=== PATIENT | female | born 1960 | race Caucasian/White ===

== ENCOUNTER 2024-08-04 10:37 | Observation (INO) ==
--- NOTE | 2024-06-08 14:21 | PAT Medication Instructions ---
Medication Instructions Date of Service June 08, 2024 Home Medications albuterol sulfate 90 mcg/actuation aerosol inhaler 2 puff inhalation Q6H PRN prn amlodipine 10 mg tablet 10 mg PO HS atenolol 25 mg tablet 25 mg PO QAM biotin 10,000 mcg capsule 10,000 mcg PO QPM budesonide-formoterol HFA 160 mcg-4.5 mcg/actuation aerosol inhaler (Symbicort) 2 puff inhalation Q12H bupropion HCl 200 mg tablet,12 hr sustained-release 200 mg PO BID collagen,hydrolysate 500 mg-biotin 800 mcg-ascorbic acid 50 mg capsule (Collagen 1500 Plus C) 1 cap PO QAM escitalopram oxalate 10 mg tablet 10 mg PO QAM hydrochlorothiazide 25 mg tablet 25 mg PO QAM levothyroxine 50 mcg tablet 50 mcg PO QAM magnesium 250 mg tablet 250 mg PO QAM montelukast 10 mg tablet 10 mg PO HS phentermine 37.5 mg tablet 37.5 mg PO QAM pregabalin 50 mg capsule 50 mg PO TID rosuvastatin 5 mg tablet 5 mg PO HS vit C-vit R-ewnvub-uazbpnwh-omega 3 100 mg-15 unit-2 mg-100 mg capsule 1 cap PO QAM vitamin B complex 1 cap PO QAM vitamin E 400 unit tablet 180 mg PO QAM MEDICATION INSTRUCTIONS: Continue as directed albuterol sulfate 90 mcg/actuation aerosol inhaler 2 puff inhalation Q6H PRN prn (use if needed; BRING TO HOSPITAL) budesonide-formoterol HFA 160 mcg-4.5 mcg/actuation aerosol inhaler (Symbicort) 2 puff inhalation Q12H STOP taking 2 weeks before surgery collagen,hydrolysate 500 mg-biotin 800 mcg-ascorbic acid 50 mg capsule (Collagen 1500 Plus C) 1 cap PO QAM vit C-vit F-ohvlwm-cqunrafe-omega 3 100 mg-15 unit-2 mg-100 mg capsule 1 cap PO QAM vitamin E 400 unit tablet 180 mg PO QAM biotin 10,000 mcg capsule 10,000 mcg PO QPM DO NOT take the morning of surgery hydrochlorothiazide 25 mg tablet 25 mg PO QAM vitamin B complex 1 cap PO QAM magnesium 250 mg tablet 250 mg PO QAM Take morning of surgery With a small sip of water, OTHERWISE NOTHING TO EAT OR DRINK AFTER MIDNIGHT: levothyroxine 50 mcg tablet 50 mcg PO QAM atenolol 25 mg tablet 25 mg PO QAM escitalopram oxalate 10 mg tablet 10 mg PO QAM pregabalin 50 mg capsule 50 mg PO TID bupropion HCl 200 mg tablet,12 hr sustained-release 200 mg PO BID Take evening before surgery rosuvastatin 5 mg tablet 5 mg PO HS amlodipine 10 mg tablet 10 mg PO HS montelukast 10 mg tablet 10 mg PO HS pregabalin 50 mg capsule 50 mg PO TID bupropion HCl 200 mg tablet,12 hr sustained-release 200 mg PO BID Other Notes STOP taking 5 days prior to surgery: phentermine 37.5 mg tablet 37.5 mg PO QAM If you have any questions please call us at [phone] or [phone] or [phone] or [phone]
--- NOTE | 2024-06-15 14:34 | Anesthesiology Consultation ---
Date of Service June 15, 2024 Assessment & Plan (1) Encounter for pre-operative examination: Plan - patient reports routine office visit with [facility] pulmonology 07/12/24, will obtain office note if completed prior to surgery. Dr. Ochoa advised pulmonology clearance is not needed and surgery can proceed if office note is not available before surgery. - OR notified pseudocholinesterase deficiency precautions will be needed. - Medtronic neurostimulator device: patient reports increased back pain which she attributes to device. Patient aware to bring remote to hospital DOS. This was discussed with Dr. Ochoa who advised sending a continuity of care document to PCP, Dr. Ron Wilson in [facility]. Chart Review Chart Review: Pending: Refer to Additional Notes / Consult section and Patient seen in Pre Admission Testing Teaching & Discussion Pre-Anesthesia Teaching/Discussion Notes: Instructed NPO after midnight before surgery, except medications with 15 cc of water. Medication instructions provided according to the PAT guidelines. History Surgery Operation Date: 07/13/24 10:20 Proposed Procedures p Right Shoulder Revision of Total Shoulder Arthroplasty, Versus Reverse Total Shoulder Arthroplasty, Versus - Ermias Sanchez MD s Hemiarthroplasty with Bone Grafting - Ermias Sanchez MD Height/Weight Height: 5 ft 4 in Weight: 87 kg Allergies Allergy/AdvReac Type Severity Reaction Status Date / Time ciprofloxacin [From Cipro] Allergy Severe Confusion Verified 06/03/24 13:09 succinylcholine Allergy Severe Verified 06/15/24 14:58 NSAIDS (Non-Steroidal AdvReac Unknown Nausea Verified 06/03/24 13:09 Anti-Inflamma sumatriptan AdvReac Unknown "TRIPTANS" Verified 10/26/09 04:14 CAUSE ELEVATED BP AND HEART RATE Medications Home Medications Medication Instructions Recorded Confirmed Last Taken albuterol sulfate 90 mcg/actuation 2 puff inhalation Q6H PRN prn 06/03/24 06/03/24 Unknown aerosol inhaler amlodipine 10 mg tablet 10 mg PO HS 06/03/24 06/03/24 Unknown atenolol 25 mg tablet 25 mg PO QAM 06/03/24 06/03/24 Unknown biotin 10,000 mcg capsule 10,000 mcg PO QPM 06/03/24 06/03/24 Unknown budesonide-formoterol HFA 160 2 puff inhalation Q12H 06/03/24 06/03/24 Unknown mcg-4.5 mcg/actuation aerosol inhaler (Symbicort) bupropion HCl 200 mg tablet,12 hr 200 mg PO BID 06/03/24 06/03/24 Unknown sustained-release collagen,hydrolysate 500 mg-biotin 1 cap PO QAM 06/03/24 06/03/24 Unknown 800 mcg-ascorbic acid 50 mg capsule (Collagen 1500 Plus C) escitalopram oxalate 10 mg tablet 10 mg PO QAM 06/03/24 06/03/24 Unknown hydrochlorothiazide 25 mg tablet 25 mg PO QAM 06/03/24 06/03/24 Unknown levothyroxine 50 mcg tablet 50 mcg PO QAM 06/03/24 06/03/24 Unknown magnesium 250 mg tablet 250 mg PO QAM 06/03/24 06/03/24 Unknown montelukast 10 mg tablet 10 mg PO HS 06/03/24 06/03/24 Unknown phentermine 37.5 mg tablet 37.5 mg PO QAM 06/03/24 06/03/24 Unknown pregabalin 50 mg capsule 50 mg PO TID 06/03/24 06/03/24 Unknown rosuvastatin 5 mg tablet 5 mg PO HS 06/03/24 06/03/24 Unknown vit C-vit E-knyvwm-apdirukb-omega 1 cap PO QAM 06/03/24 06/03/24 Unknown 3 100 mg-15 unit-2 mg-100 mg capsule vitamin B complex 1 cap PO QAM 06/03/24 06/03/24 Unknown vitamin E 400 unit tablet 180 mg PO QAM 06/03/24 06/03/24 Unknown Past Medical History Medical History (Updated 06/15/24 @ 14:59 by Sho Paul PA-C) Bxdkv-0-[id number] deficiency Anxiety Asthma uses inhalers prn Cervical disc herniation Depression Shelly's disease History of skull fracture (2021) [facility] Hyperlipidemia Hypertension controlled, stable per pt Hypothyroidism Osteoarthritis Pseudocholinesterase deficiency mother with pseudocholinesterase deficiency; per patient mother "can't have succinylcholine" Sacral neurostimulator in situ medtronic, patient was advised to bring visual basic programmer to PAT appointment and DOS Sleep apnea CPAP-compliant Patient denies h/o stroke, seizures, heart attack, heart failure, DM, blood clots/DVTs or blood transfusions. Exercise / Class Metabolic Activity II 4-5 Yardwork/Stairs/Walk up hill (denies chest discomfort or shortness of breath with one flight of stairs) Past Surgical History Surgical History History of bunionectomy of left great toe History of cataract surgery bilateral History of facial surgery (2004) hardware placed right eye socket History of hemorrhoidectomy History of photorefractive keratectomy (PRK) History of right shoulder replacement History of shoulder surgery right "stabilization with pins" History of tonsillectomy Past Anesthesia History Pseudocholinesterase Deficiency History of PONV No Hx of PONV and No Hx of Motion Sickness Social History Smoking Status: Never smoker Do You Dip or Chew Tobacco: No Hx Alcohol Use: No Hx Substance Use: No substance use type: does not use Review of Systems Patient denies chest pain, shortness of breath, dyspnea on exertion, reflux, fever, chills, cough, wheezing, or palpitations. Physical Exam Vital Signs Vitals BP 109/71 P 60 TEMP 98.2 SP02 96% on RA RESP 18 Physical Patient resting comfortably in chair in no acute distress, alert and oriented, responding appropriately throughout visit Full cervical extension range of motion without pain TMD 3.5 finger breadths Mallampati Score 2 Dentition: intact, denies chipped or loose teeth, caps/crowns, implants or bridges Lungs: normal respiratory effort. Good air movement, clear throughout to auscultation, no adventitious breath sounds Cardiac: regular rate and rhythm, no murmurs noted Carotid arteries: negative bruit bilat Lab Results Anesthesia Preop Results Results Anesthesia Widget: WBC 5.48 K/ul (4.8-10.8) 06/15/24 Hgb 13.0 g/dl (12.0-16.0) 06/15/24 Hct 38.3 % (37.0-47.0) 06/15/24 Plt 288 K/uL (130-400) 06/15/24 Na 139 mmol/L (136-145) 06/15/24 K 3.7 mmol/L (3.5-5.1) 06/15/24 Cl 103 mmol/L (98-107) 06/15/24 CO2 30 mmol/L (21-32) 06/15/24 BUN 17 mg/dl (6-23) 06/15/24 Creat 0.77 mg/dl (0.6-1.2) 06/15/24 Glucose Level 104 mg/dl (70-99(Fasting)) H 06/15/24 PT 10.7 Seconds (9.0-12.0) 06/15/24 PTT 25 Seconds (21-31) 06/15/24 INR 1.0 (0.9-1.1) 06/15/24 Urine Color Yellow 06/15/24 Urine Appearance Clear (Clear) 06/15/24 Urine pH 7.0 (4.5-7.5) 06/15/24 Urine Specific [place] 1.015 (1.000-1.030) 06/15/24 Urine Protein Negative (Negative) 06/15/24 Urine Glucose (UA) Negative (Negative) 06/15/24 Urine Ketones Negative (Negative) 06/15/24 Urine Blood Negative (Negative) 06/15/24 Urine Nitrite Negative (Negative) 06/15/24 Urine Bilirubin Negative (Negative) 06/15/24 Urine Urobilinogen Negative (Negative) 06/15/24 Urine Leukocyte Esterase Trace (Negative) H 06/15/24 Urine WBC (Auto) 0-5 /hpf (0-5) 06/15/24 Urine RBC (Auto) 0-2 /hpf (0-2) 06/15/24 Urine Hyaline Casts (Auto) 0-2 /lpf (0-2) 06/15/24 Urine Epithelial Cells (Auto) 0-2 /hpf (0-2) 06/15/24 Urine Bacteria (Auto) None Seen (None Seen) 06/15/24 Blood Type AB Positive 06/15/24 Antibody Screen NEGATIVE 06/15/24 Testing Electrocardiogram Date: 06/15/24 Sinus bradycardia, rate 57 bpm Left axis deviation Cannot rule out anterior infarct, age undetermined No significant change vs 01/30/2009 EKG Chest X-Ray Date: 06/15/24 No active disease in the chest.
--- NOTE | 2024-07-11 17:44 | History & Physical Report ---
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 Plan is to proceed with revision of a right shoulder anatomic total shoulder replacement to a right shoulder reverse total shoulder replacement. Augmented glenoid component will be required due to bone loss. Possible bone grafting with or without Genex bone graft substitute may be required. Encounter type: initial encounter Qualified Code(s): T84.038A - Mechanical loosening of other internal prosthetic joint, initial encounter; Z96.619 - Presence of unspecified artificial shoulder joint History of Present Illness Chief Complaint: Right shoulder pain , right total shoulder replacement. Primary Care Provider: NO PCP 64-year-old female with right shoulder pain now diagnosed with osteolysis and aseptic glenoid loosening of a right anatomic shoulder replacement. Index procedure 02/14/2009 for advanced glenohumeral osteoarthritis with posterior subluxation with chondrolysis status post prior arthroscopic stabilization procedure. Patient also had a biceps tenodesis. Patient denies headaches, sweats, fevers, chills, double vision, blurred vision, cough, sore throat, dysphagia, chest pain, sob, wheezing, n/v/d/c, numbness, tingling, fatigue, urinary symptoms, mood disorders. ROS positive for anxiety depression, asthma, sleep apnea, shortness of breath walking up a hill or running short distance or climbing some stairs sometimes, hypothyroidism Shelly's osteoarthritis of the spine obesity takes diet medication. Allergies Allergy/AdvReac Type Severity Reaction Status Date / Time ciprofloxacin [From Cipro] Allergy Severe Confusion Verified 06/03/24 13:09 succinylcholine Allergy Severe Verified 06/15/24 14:58 NSAIDS (Non-Steroidal AdvReac Unknown Nausea Verified 06/03/24 13:09 Anti-Inflamma sumatriptan AdvReac Unknown "TRIPTANS" Verified 10/26/09 04:14 CAUSE ELEVATED BP AND HEART RATE Home Medications Medication Instructions Recorded Confirmed Type albuterol sulfate 90 mcg/actuation 2 puff inhalation Q6H PRN prn 06/03/24 06/03/24 History aerosol inhaler amlodipine 10 mg tablet 10 mg PO HS 06/03/24 06/03/24 History atenolol 25 mg tablet 25 mg PO QAM 06/03/24 06/03/24 History biotin 10,000 mcg capsule 10,000 mcg PO QPM 06/03/24 06/03/24 History budesonide-formoterol HFA 160 2 puff inhalation Q12H 06/03/24 06/03/24 History mcg-4.5 mcg/actuation aerosol inhaler (Symbicort) bupropion HCl 200 mg tablet,12 hr 200 mg PO BID 06/03/24 06/03/24 History sustained-release collagen,hydrolysate 500 mg-biotin 1 cap PO QAM 06/03/24 06/03/24 History 800 mcg-ascorbic acid 50 mg capsule (Collagen 1500 Plus C) escitalopram oxalate 10 mg tablet 10 mg PO QAM 06/03/24 06/03/24 History hydrochlorothiazide 25 mg tablet 25 mg PO QAM 06/03/24 06/03/24 History levothyroxine 50 mcg tablet 50 mcg PO QAM 06/03/24 06/03/24 History magnesium 250 mg tablet 250 mg PO QAM 06/03/24 06/03/24 History montelukast 10 mg tablet 10 mg PO HS 06/03/24 06/03/24 History phentermine 37.5 mg tablet 37.5 mg PO QAM 06/03/24 06/03/24 History pregabalin 50 mg capsule 50 mg PO TID 06/03/24 06/03/24 History rosuvastatin 5 mg tablet 5 mg PO HS 06/03/24 06/03/24 History vit C-vit D-kyucjj-gwvwttya-omega 1 cap PO QAM 06/03/24 06/03/24 History 3 100 mg-15 unit-2 mg-100 mg capsule vitamin B complex 1 cap PO QAM 06/03/24 06/03/24 History vitamin E 400 unit tablet 180 mg PO QAM 06/03/24 06/03/24 History Past Med/Surg History Problem List (Updated 07/11/24 @ 17:40 by Ermias Sanchez MD) Loosening of shoulder joint prosthesis Encounter for pre-operative examination Medical History Pseudocholinesterase deficiency mother with pseudocholinesterase deficiency; per patient mother "can't have succinylcholine" History of skull fracture (2021) [facility] Sacral neurostimulator in situ medtronic, patient was advised to bring applications programmer to PAT appointment and DOS Cervical disc herniation Osteoarthritis Shelly's disease Hypothyroidism Depression Anxiety Hyperlipidemia Hypertension controlled, stable per pt Fnpwb-3-[id number] deficiency Sleep apnea CPAP-compliant Asthma uses inhalers prn Surgical History History of facial surgery (2004) hardware placed right eye socket History of right shoulder replacement History of tonsillectomy History of shoulder surgery right "stabilization with pins" History of bunionectomy of left great toe History of hemorrhoidectomy History of photorefractive keratectomy (PRK) History of cataract surgery bilateral Social History Smoking Status: Never smoker Second Hand Exposure: No; Do You Dip or Chew Tobacco: No; Tobacco Cessation Education Requested by Patient: No Hx Alcohol Use: No Hx Substance Use: No Preferred Language: [employer] Required: No Beliefs That Will Affect Care: None Current Living Situation: Spouse Other Information That Helps Us Care for You: No Feels Safe at Home: Yes Safety Concerns: Feels Safe At This Time Assistive Devices: Denture - Lower Assistive Devices Comment: permanant partial on bottom Review of Systems All systems reviewed & are unremarkable except as noted in HPI & below Physical Exam Constitutional: WD/WN, vitals as above Respiratory: normal respiratory effort; no respiratory distress Cardiovascular: Rate/Rhythm: regular rate and regular rhythm Musculoskeletal: Right shoulder with benign old scars no crepitation a positive belly press test but good abduction and external rotation strength. Some weakness with bearhug test. 145 degrees forward flexion and 110 degrees active abduction with exte rnal rotation to 80 degrees and internal rotation to 90 degrees and mild pain with range of motion. Neurological exam intact. Skin: no rashes, warm and dry Neurologic: normal touch/pain/proprioception Psychiatric: A+Ox3, euthymic affect Results & Data Laboratory Results CBC ESR CRP all within normal limits Diagnostic Findings X-rays and CT scan demonstrate massive osteolysis around the glenoid with loosening of the glenoid component and no loosening of the humeral stem. CT scan verifies loosening of the glenoid component and on blueprint evaluation we were able to set an augmented glenoid component and achieve satisfactory potential screw length fixation of the implant on the computer program.
[~2024-08-04 10:37] MED LIST: BUPIVACAINE 0.5 % 5 MG/1 ML PF 10ML VIAL ONE
[2024-08-04] MEDS ORDERED: PROPOFOL IV EMULSION 10 MG/ML 20 ML VIAL IV ONE (11:30)
[2024-08-04] MEDS ORDERED: LIDOCAINE 2% 2 ML VIAL/AMP(20MG/ML) INFIL ONE (11:30)
[2024-08-04] MEDS ORDERED: LARYING-O-JET KIT (LTA) ONE (11:30)
[2024-08-04] MEDS ORDERED: MIDAZOLAM HCL 1 MG/ML 2ML VIAL ONE (11:30)
[2024-08-04] MEDS ORDERED: ONDANSETRON INJ 2 MG/ML 2 ML VIAL ONE ×2 (11:30→17:58)
[2024-08-04] MEDS ORDERED: DEXAMETHASONE SOD INJ 4 MG/ML VIAL ONE (11:30)
[2024-08-04] MEDS ORDERED: ROCURONIUM BROMIDE 10 MG/ML 5 ML VIAL IV ONE ×3 (11:30→16:12)
[2024-08-04] MEDS ORDERED: fentaNYL citrate PF 100 MCG/2 ML VIAL ONE ×2 (11:30→18:28)
[2024-08-04] MEDS ORDERED: SUGAMMADEX SODIUM 200 MG/2 ML VIAL IV ONE (11:30)
[2024-08-04] MEDS ORDERED: ONDANSETRON INJ 2 MG/ML 2 ML VIAL IV PRN ×2 (11:56→19:53)
[2024-08-04] MEDS ORDERED: HYDROmorphone INJ 1 MG/ML SYRINGE IV PRN (11:56)
[2024-08-04] MEDS ORDERED: ePHEDrine sulfate 50 MG/ML AMP IV PRN (11:56)
[2024-08-04] MEDS ORDERED: PROMETHAZINE HCL 6.25 MG in SODIUM CHLORIDE 0.9% 50 ML IV PRN (11:56)
[2024-08-04] MEDS ORDERED: ATROPINE SULFATE 0.1 MG/ML 10ML SYR IV PRN (11:56)
--- NOTE | 2024-08-04 12:03 | History & Physical Bridge Note ---
Date of Service August 04, 2024 History & Physical Bridge Note I have examined the patient, reviewed the History & Physical and in the interval since the performance of the History & Physical I have noted the following changes of clinical significance: no changes noted
[2024-08-04] MEDS: ACETAMINOPHEN 500 MG TAB PO SCH ×2 (12:10→22:28)
[2024-08-04] MEDS: GABAPENTIN 300 MG CAP PO SCH (12:10)
[2024-08-04] MEDS: LACTATED RINGER'S 1,000 ML IV SCH (12:10)
[2024-08-04] MEDS: CeleBREX 200 MG CAP PO SCH (12:10)
[2024-08-04] MEDS: FAMOTIDINE 20 MG TAB PO SCH (12:11)
[2024-08-04] MEDS: dexAMETHasone**PF** 10 MG/ML VIAL IV SCH (12:11)
[2024-08-04] MEDS: METOCLOPRAMIDE HCL 10 MG TABLET PO SCH (12:11)
[2024-08-04] MEDS: TRANEXAMIC ACID 1,000 MG **IV Pre-op IV SCH (13:33)
[2024-08-04] MEDS: ceFAZolin 2000MG 2,000 MG/15 ML SYR IV SCH (13:44)
[2024-08-04] MEDS ORDERED: PHENYLEPHRINE HCL 10 MG/ML VIAL ONE (15:20)
[2024-08-04] MEDS ORDERED: ePHEDrine sulfate 50 MG/5 ML SYR ONE ×2 (15:33→16:33)
[2024-08-04] MEDS: EpINEphrine HCL INJ 1 MG/ML 1ML SYRINGE IR ONE (16:19)
[2024-08-04] MEDS: ceFAZolin 2000MG 2,000 MG/15 ML SYR IV ONE (17:44)
[2024-08-04] MEDS: TRANEXAMIC ACID 1,000 MG **IV Intra-op IV SCH (18:00)
[2024-08-04] MEDS: fentaNYL citrate PF 100 MCG/2 ML VIAL IV PRN (18:39)
--- NOTE | 2024-08-04 18:48 | Operative Report ---
Post Operative Report Pre & Post Diagnosis Operation Date: 08/04/24 13:10 Pre-Op Diagnosis: Right Shoulder aseptic loosening anatomic total Shoulder Arthroplasty with osteolysis with loosening of glenoid component with bone loss and osteolysis proximal humerus without loosening of stem. Post-Op Diagnosis: Same I identified the patient and participated in the time-out.: Yes Procedure Operation Date: 08/04/24 13:10 Actual Procedures p Right Revision of anatomic total Shoulder Arthroplasty both glenoid and humeral components with Reverse Total Shoulder Arthroplasty including Genex bone substitute application. Debridement inflammatory scar tissue and synovium and old suture material.- Ermias Sanchez MD - Ermias Sanchez MD Surgeon Ermias Sanchez MD Scheduling Agent Leo LOZOYA Estimated Blood Loss 200 Findings Consistent with Post-Op Diagnosis Specimens Frozen section Drains 2 Hemovac Anesthesia Type General Regional Complications none Disposition Disposition: Recovery Room Indications 64-year-old female presenting with right shoulder pain with loosening of the glenoid. Patient had extensive workup with normal CBC sed rate CRP and x-rays and CT scan demonstrating massive osteolysis around the glenoid with glenoid loosening and displacement and osteolysis around the proximal humerus with no loosening of the stem. Description of Procedure Patient had regional block and general anesthetic placed in the 30 degree beachchair position with towel on medial to right scapula. She was translated right so the beds were shoulder be made plate off the bed. Her head was placed on a foam headrest and she had protective eyewear. All extremities were well- padded. SCDs were placed. Patient had Ancef preop antibiotics. Patient had TXA preop. Shoulder exam demonstrated 120 degrees forward flexion 70 to 80 degrees abduction and 45 degrees external rotation. There was no erythema no drainage benign old scar. Patient was sterilely prepped and draped in usual fashion. A longitudinal decision was made through her old scar. Subtendinous flaps were elevated. There was no cephalic vein. Small veins were cauterized. The interval between deltoid and pectoralis was developed down to the conjoined tendon which was identified. The biceps tendon was identified being tenodesed in the bicipital groove area. The upper centimeter of the pectoralis was released for inferior exposure. Subscapularis tendon was still intact but it was poor degenerative type tissue with multiple areas of inflammatory response with the scarred inflammatory tissue around each of the knots from the prior suturing. Had a bluish hue to it possibly due to the color of the suture. All of these old sutures were removed with a rongeur scalpel. Inflammatory tissue was removed. The rotator was then opened up and divided down to the glenoid. Normal clear fluid was evacuated from the joint. Incision was taken down through the bicipital groove down to the pectoralis release. Subperiosteal peel was then performed carefully peeling this off the neck of the humerus exposing the humeral implant. There was similar inflammatory scar tissue synovitis consistent with aseptic osteolysis around the neck of the prosthesis and around between the metal and the greater tuberosity and lesser tuberosity areas. More sutures that were placed transosseous for the repair were removed in these areas and this tissue was removed with a rongeur and curettes. Stem was well-fixed. A tamp was used to remove the humeral head. The implant was an aequalis type implant which had a large ring under the implant that did not allow a straight shot allowing the shaft because of the overhang of the ledge. There was a Jackson taper in the central region. This time we did have enough exposure to place retractors and inspect the glenoid and there was massive osteolysis there with inflammatory response in the glenoid was displaced anteriorly in the area of bone defect where it had stabilized in that area but was obviously loose. It was removed uneventfully. Appear to be some typical wear and some edge wear on the implant all pegs removed with some cement around the pegs. Implant was a pegged implant. This was taken back to the humerus. To extract the humerus I used a flexible osteotomes with a curved shape to work around the stem underlying underlying the ledge. There is also a thin on the back of the implant that had to be freed up from the surrounding bone when it was bone ingrowth of the thin I used a very small curette and a small rongeur to free that up. After I felt we had enough circumferential separation we used the Kybernesis extraction system and disimpacted the stem. There was some fragmentation of the greater tuberosity but of these fragments were enveloped by the intact posterior rotator cuff so there was no displacement of the fragments. There was a pedestal distal to the stems we had opened this up with the drill. Then used a 4 mm VitalTraxet reamer to ream the canal and then we able to use the Tornier reamers up to a size 9 stem which is a tight fit. I felt we could see this 130 mm stem to the appropriate depth and use on 9 stem. The trial stem and broach were then placed and a cut protector was placed and then we exposed the glenoid. Osteolytic inflammatory tissue was removed from the glenoid demonstrating cavitary contained defect with a very thin rim anteriorly and thicker better bone posteriorly. There was a crescent shaped area of bone that was still flat that we could get support with and based on the CT scanning I felt we could use a wedged implant to take up some of the bone loss anteriorly aiming the wedge anterior superiorly. Look that a full wedge versus a partial wedge and I felt that using a half wedge would get some support on the flat area and then get close to the bone where there was significant bone loss anteriorly with the half wedge. Because of the major defects I had to fill these voids with Genex calcium phosphate/calcium sulfate material. The Genex was mixed and injected onto the face of the glenoid and the defects and a trial 25 mm HEP which basepla te with a 35 degree angle wedge was used when the Genex started to set up and its putty state and the central pain which. Drilled was left in place and we slid down the trial over the pin and compressed this calcium phosphate/calcium sulfate material until it completely hardened. I did place bone wax into the holes of the trial to seal those areas. After 16 minutes the drill for the central boss was used and we got into some very hard bone which was good for fixation. And the central depth of the screw was 30 mm which was satisfactory for fixation through the glenoid vault. The Tornier 25 mm have wedge 35 degree angled implant with the 30 mm central screw was then screwed in position with a tight fit. This was transfixed with superior-inferior anterior and posterior screws we did the compression screw anteriorly first followed by the posterior screw which was 38 mm had excellent fixation and then this was followed by 2 more screws superiorly inferiorly both also with good fixation. After irrigation and drying the implant the 36 mm standard glenoid sphere was placed in position impacted onto the baseplate and the security screw was tightened. Fixation was solid. Trial reduction demonstrated that the +6 insert would be satisfactory. The trials were removed canal was irrigated and the final implant was assembled. The 9 mm PTC proximal body was attached to the 9 mm fully coated PTC distal stem from the revive revision system from [employer]. The implant was impacted at 20 degrees of retroversion. The +0 high offset baseplate with the offset superior was impacted onto the stem followed by the +6/36 mm reversed polyethylene insert. This was reduced to the glenoid sphere and range of motion was 140 degrees of forward flexion 70 degrees of abduction 65 degrees external and internal rotation with a stable shoulder and no shuck. After irrigation including Xperience irrigation the release of the supraspinatus rotator cuff that we had done for exposure was repaired with [id number] #2 FiberWire suture. This was also done to help stabilize the fragmented greater tuberosity. The subscapularis was not repaired and the degenerative tissue was debrided. The pectoralis was repaired with [id number] #2 FiberWire. 2 Hemovac drains were placed. The deltopectoral interval was repaired with [id number] #1 Vicryl sutures. Subcutaneous tissue was closed into 2-0 Vicryl sutures. Skin was closed with surgical otoniel. Sterile dressings were applied. Sling immobilizer was applied. Patient tolerated the procedure satisfactorily. Leo LOZOYA participated as my field technical assistant and was integral part throughout the entire procedure. He participated with retraction, arm position, wound exposure, wound closure and will participate in the postoperative care of the patient as well.. I attest to the content of the Intraoperative Record and any orders documented therein. Any exceptions are noted below.
--- NOTE | 2024-08-04 18:53 | XRay Report ---
INDICATION: Postoperative evaluation. TECHNIQUE: 2 views of the right shoulder. COMPARISON: CT from 05/05/2024. FINDINGS/IMPRESSION: Right shoulder hardware appears intact. No acute fracture or dislocation. Postop changes in the soft tissues. Drain catheters and skin otoniel noted. Electronically signed by Joseph Moore 08-04-2024 6:53 PM
--- NOTE | 2024-08-04 19:04 | Anesthesiology Progress Note ---
Date of Service August 04, 2024 Anesthesia Post Procedure Vital Signs Vital Signs: Temp Pulse Pulse Resp BP Pulse Ox O2 Del Method 08/04/24 19:00 65 13 114/61 92 Nasal Cannula 08/04/24 18:50 69 14 113/65 95 Nasal Cannula 08/04/24 18:40 68 15 117/60 95 Oxymask 08/04/24 18:31 36.1 C L 69 18 105/63 96 Oxymask 08/04/24 11:55 Room Air, CPAP 08/04/24 11:55 37 C 65 18 109/60 94 Room Air O2 Flow Rate 08/04/24 19:00 3 08/04/24 18:50 3 08/04/24 18:40 5 08/04/24 18:31 5 08/04/24 11:55 08/04/24 11:55 Pain Intensity Right Shoulder: Pain Intensity: 4 Transfer of Care Handoff Completed per policy Notes Mental Status: alert / awake / arousable Patient Amnestic to Procedure: Yes Nausea / Vomiting: adequately controlled Pain: adequately controlled Airway Patency, RR, SpO2: stable & adequate BP & HR: stable & adequate Hydration State: stable & adequate Anesthetic Complications: no major complications apparent and Pt Satisfied with anesthetic care
[2024-08-04] MEDS ORDERED: ALBUTEROL HFA 8 GM INHALER INH PRN (19:53)
[2024-08-04] MEDS ORDERED: ALUMINUM/MAGNESIUM SUSP 30 ML UDC PO PRN (19:53)
[2024-08-04] MEDS ORDERED: KETOROLAC TROMETHAMINE 15 MG/ML VIAL IV PRN (19:53)
[2024-08-04] MEDS ORDERED: bisacodyL 10 MG SUPP PR PRN (19:53)
[2024-08-04] MEDS ORDERED: MAGNESIUM HYDROXIDE SUSP 30 ML UDC PO PRN (19:53)
[2024-08-04] MEDS ORDERED: diphenhydrAMINE Capsule 25 MG CAP PO PRN (19:53)
[2024-08-04] MEDS ORDERED: METOCLOPRAMIDE HCL INJ 5 MG/ML 2 ML VIAL IV PRN (19:53)
[2024-08-04] MEDS ORDERED: NALOXONE HCL 0.4 MG/1 ML VIAL/CARP IV PRN (19:53)
[2024-08-04] MEDS: HYDROmorphone INJ 0.5 MG/0.5 ML SYR IV PRN (20:16)
--- NOTE | 2024-08-04 20:22 | Hospitalist Consultation ---
Date of Consultation August 04, 2024 Assessment & Plan (1) Hypertension: Patient with hx of HTN - on amlodipine, atenolol, and HCTZ. Did hold PM dose of amlodipine as patient with soft BPs. If needed could hold AM BP meds. Ideally would continue beta timothy to avoid withdrawal. (2) Asthma: Continue home meds - montelukast, albuterol, ICS/LABA (3) Sleep apnea: Patient declines CPAP while inpatient. (4) Anxiety: Continue home meds - Wellbutrin, escitalopram (5) Depression: Continue home meds (6) Hypothyroidism: Continue home meds - 50 mcg levothyroxine Plan Code status: full DVT ppx: SCDs, chemo-ppx contraindicated with recent surgery FENGI: regular Dispo: MedSurg Rest of care per primary team History of Present Illness Reason for Consultation: Med management Requesting Physician: Ermias Sanchez MD Attending Physician: Dr. Manley History of Present Illness 64 y/o with a PMHX of BRADEN on CPAP, hypothyroidism, HTN, HLD, and asthma here for a right shoulder arthroplasty revision now POD1. Hospitalist team was consulted for medication management. Patient doing well post-op. Pain is controlled. No nausea or vomiting. No CP or SOB. Overall feeling good and anticipating going home tomorrow. Allergies Allergy/AdvReac Type Severity Reaction Status Date / Time ciprofloxacin [From Cipro] Allergy Severe Confusion Verified 08/04/24 11:42 succinylcholine Allergy Severe Verified 08/04/24 11:42 NSAIDS (Non-Steroidal AdvReac Mild Nausea Verified 08/04/24 11:42 Anti-Inflamma sumatriptan AdvReac Mild "TRIPTANS" Verified 08/04/24 11:42 CAUSE ELEVATED BP AND HEART RATE Home Medications Medication Instructions Recorded Confirmed Type albuterol sulfate 90 mcg/actuation 2 puff inhalation Q6H PRN prn 06/03/24 08/04/24 History aerosol inhaler amlodipine 10 mg tablet 10 mg PO HS 06/03/24 08/04/24 History atenolol 25 mg tablet 25 mg PO QAM 06/03/24 08/04/24 History biotin 10,000 mcg capsule 10,000 mcg PO QPM 06/03/24 08/04/24 History budesonide-formoterol HFA 160 2 puff inhalation Q12H 06/03/24 08/04/24 History mcg-4.5 mcg/actuation aerosol inhaler (Symbicort) bupropion HCl 200 mg tablet,12 hr 200 mg PO BID 06/03/24 08/04/24 History sustained-release escitalopram oxalate 10 mg tablet 20 mg PO QAM 06/03/24 08/04/24 History hydrochlorothiazide 25 mg tablet 25 mg PO QAM 06/03/24 08/04/24 History levothyroxine 50 mcg tablet 50 mcg PO QAM 06/03/24 08/04/24 History magnesium 250 mg tablet 250 mg PO QAM 06/03/24 08/04/24 History montelukast 10 mg tablet 10 mg PO HS 06/03/24 08/04/24 History phentermine 37.5 mg tablet 37.5 mg PO QAM 06/03/24 08/04/24 History pregabalin 50 mg capsule 100 mg PO TID 06/03/24 08/04/24 History rosuvastatin 5 mg tablet 5 mg PO HS 06/03/24 08/04/24 History vit C-vit I-eabtgd-qakppzvd-omega 1 cap PO QAM 06/03/24 08/04/24 History 3 100 mg-15 unit-2 mg-100 mg capsule vitamin B complex 1 cap PO QAM 06/03/24 08/04/24 History ibuprofen 800 mg tablet 800 mg PO BID PRN Pain 08/04/24 08/04/24 History Patient History Medical History Pseudocholinesterase deficiency mother with pseudocholinesterase deficiency; per patient mother "can't have succinylcholine" History of skull fracture (2021) [facility]- due to fall, had stitches, no issues current Sacral neurostimulator in situ medtronic, patient was advised to bring server programmer to PAT appointment and DOS Cervical disc 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 Hypothyroidism Depression Anxiety Hyperlipidemia Hypertension controlled, stable per pt Bvaio-3-gkpcaotfult deficiency Sleep apnea CPAP-compliant Asthma uses inhalers prn Surgical History History of facial surgery (2004) hardware placed right eye socket History of right shoulder replacement History of tonsillectomy History of shoulder surgery right "stabilization with pins" History of bunionectomy of left great toe History of hemorrhoidectomy History of photorefractive keratectomy (PRK) (2000) History of cataract surgery bilateral Social History Smoking Status: Never smoker Second Hand Exposure: No; Do You Dip or Chew Tobacco: No; Tobacco Cessation Education Requested by Patient: No Hx Alcohol Use: Yes Hx Substance Use: No Preferred Language: Malaysian Communication Ability: Effective Director Athletic Required: No Beliefs That Will Affect Care: None Current Living Situation: Spouse Other Information That Helps Us Care for You: No Feels Safe at Home: Yes Safety Concerns: Feels Safe At This Time Assistive Devices: CPAP and Glasses Assistive Devices Comment: readers Review of Systems Review of Systems: See HPI Physical Exam Physical Exam: Gen: well appearing patient in NAD HEENT: AT NC MMM Resp: CTAB no wheezing no increased work of breathing CV: RRR no m/r/g clinically well perfused Abd: soft, non-tender, non-distended MSK: no obvious deformities Skin: no rashes or bruising, hemovac draining sero-sanguinous fluid Neuro: alert and oriented Psych: appropriate mood and affect Results & Data Results & Data Vital Signs (Past 12 Hours) Vital Signs Temp Pulse Pulse Resp BP Pulse Ox O2 Del Method 08/04/24 19:30 67 17 113/66 92 Nasal Cannula 08/04/24 19:20 65 16 117/59 L 92 Nasal Cannula 08/04/24 19:10 36.4 C L 65 15 112/58 L 94 Nasal Cannula 08/04/24 19:00 65 13 114/61 92 Nasal Cannula 08/04/24 18:50 69 14 113/65 95 Nasal Cannula 08/04/24 18:40 68 15 117/60 95 Oxymask 08/04/24 18:31 36.1 C L 69 18 105/63 96 Oxymask 08/04/24 11:55 Room Air, CPAP 08/04/24 11:55 37 C 65 18 109/60 94 Room Air O2 Flow Rate 08/04/24 19:30 2 08/04/24 19:20 2 08/04/24 19:10 2 08/04/24 19:00 3 08/04/24 18:50 3 08/04/24 18:40 5 08/04/24 18:31 5 08/04/24 11:55 08/04/24 11:55 Diagnostic Findings Shoulder X-Ray 08/04/24 18:31 INDICATION: Postoperative evaluation. TECHNIQUE: 2 views of the right shoulder. COMPARISON: CT from 05/05/2024. FINDINGS/IMPRESSION: Right shoulder hardware appears intact. No acute fracture or dislocation. Postop changes in the soft tissues. Drain catheters and skin otoniel noted. Electronically signed by Joseph Moore 08-04-2024 6:53 PM Resident Activity Tracking Resident Involvement: Resident Care Provided Care Provided: Adult Hospital Medicine
[2024-08-04] MEDS: PREGABALIN 100 MG CAP PO SCH (22:23)
[2024-08-04] MEDS: DOCUSATE SODIUM 100 MG CAP PO SCH (22:23)
[2024-08-04] MEDS: buPROPion SR 100 MG TABCR PO SCH (22:24)
[2024-08-04] MEDS: MONTELUKAST SODIUM 10 MG TABLET PO SCH (22:26)
[2024-08-04] MEDS: amLODIPine BESYLATE 5 MG TAB PO SCH (22:27)
[2024-08-04] MEDS: ROSUVASTATIN CALCIUM 5 MG TAB PO SCH (22:27)
[2024-08-04] MEDS: FLUTICASONE/VILANTEROL 200/25MCG 14 PUFFS/INHALER INH SCH (22:27)
[2024-08-04] MEDS: SENNA 8.6 MG TAB PO SCH (22:28)
[2024-08-04] MEDS: LR 60ML/HR IV SCH (23:56)
[2024-08-05] MEDS: TRANEXAMIC ACID / 0.7% NACL 1,000 MG/100 ML BAG IV SCH (00:30)
[2024-08-05] MEDS: ceFAZolin 2000MG 2,000 MG/15 ML SYR IV SCH (00:30)
[2024-08-05] MEDS: oxyCODONE HCL IR 5 MG TAB (IMMEDIATE RELEASE) PO PRN (04:36)
[2024-08-05] MEDS: LEVOTHYROXINE SODIUM 50 MCG TABLET PO SCH (05:52)
[2024-08-05] MEDS: MAGNESIUM OXIDE 400 MG TAB PO SCH (08:06)
[2024-08-05] MEDS: VITAMIN B COMPLEX TAB PO SCH (08:06)
[2024-08-05] MEDS: hydroCHLOROthiazide 25 MG TAB PO SCH (08:07)
[2024-08-05] MEDS: ASPIRIN 325 MG ECTAB PO SCH (08:07)
[2024-08-05] MEDS: ESCITALOPRAM OXALATE 20 MG TAB PO SCH (08:07)
[2024-08-05] MEDS: CEROVITE ADV FORMULA TAB PO SCH (08:07)
[2024-08-05] MEDS: ATENOLOL 25 MG TABLET PO SCH (08:07)
--- NOTE | 2024-08-05 08:19 | Orthopedic Progress Note ---
Date of Service August 05, 2024 Assessment & Plan (1) Loosening of shoulder joint prosthesis: Plan: Right shoulder osteolysis with loosening of glenoid component with bone loss and osteolysis proximal humerus without loosening of stem. Postop day 1 revision of anatomic total shoulder placement to a reverse shoulder replacement with calcium phosphate/sulfate bone filler placed to defects glenoid prior to implantation glenoid component. I am not going to start any formal physical therapy to allow some healing but patient can do home exercises with hand wrist elbow range of motion shoulder shrugs and scapular retraction type exercises and can pendulum a for bathing and dressing. Drainage is minimal so drain can be discontinued prior to discharge. Patient has to follow-up in 2 weeks for staple removal. Patient has Silverlon dressing and will give typical instructions for postop management. Admission and Anticipated Discharge Date Admission Date: August 04, 2024 Subjective Little sore but no complaints. Review of Systems Review of Systems: Breathing improved and no complaints this morning. Patient feels well. Physical Exam Musculoskeletal: Distal neurological exam intact with normal return of motor function to her hand. Dressing dry and intact. Results & Data Vital Signs (Past 12 Hours) Vital Signs Temp Pulse Resp BP Pulse Ox O2 Del Method O2 Flow Rate 08/05/24 07:19 36.6 C 80 16 97/61 L 93 Room Air 08/05/24 05:55 91 Room Air 08/05/24 04:21 36.4 C L 78 16 104/65 92 Nasal Cannula 2 08/05/24 00:15 36.5 C 81 18 107/69 95 Nasal Cannula 2 08/04/24 22:42 36.4 C L 85 18 98/63 L 92 Nasal Cannula 2 08/04/24 21:47 36.3 C L 73 18 104/66 93 Nasal Cannula 2 08/04/24 20:47 36.6 C 65 18 97/61 L 95 Nasal Cannula 2 Diagnostic Findings Assessment alignment of reverse total shoulder replacement with revision humeral stem implant. (1) Loosening of shoulder joint prosthesis Encounter type: initial encounter Qualified Code(s): T84.038A - Mechanical loosening of other internal prosthetic joint, initial encounter; Z96.619 - Presence of unspecified artificial shoulder joint
[2024-08-05 08:20] LABS: Basophils # (auto) 0.01 K/uL (0.00-0.20); Basophils % (auto) 0.1 %; Hematocrit (blood only) 31.8 % (37.0-47.0); Hemoglobin 10.3 g/dl (12.0-16.0); Immature Granulocytes # (auto) 0.04 K/uL (0.01-0.20); Immature Granulocytes % (auto) 0.4 %; Lymphocytes # (auto) 0.89 K/uL (1.20-3.40); Lymphocytes % (auto) 9.3 %; Mean Corpuscular Hemoglobin 28.5 pg (25.0-34.0); Mean Corpuscular Hgb Conc 32.4 g/dL (32.0-36.0); Mean Corpuscular Volume 87.8 fL (80.0-100.0); Mean Platelet Volume 9.6 fL (9.4-12.4); Monocytes # (auto) 0.84 K/uL (0.11-0.59); Monocytes % (auto) 8.8 %; Neutrophils # (auto) 7.82 K/uL (1.40-6.50); Neutrophils % (auto) 81.4 %; Platelet Count 254 K/uL (130-400); RDW Coefficient of Variation 12.8 % (11.5-14.5); Red Blood Count 3.62 M/uL (4.20-5.40)
--- NOTE | 2024-08-05 08:27 | Hospitalist Progress Note ---
Date of Service August 05, 2024 Assessment & Plan Admission and Anticipated Discharge Date Admission Date: August 04, 2024 Results & Data Results & Data Vital Signs (Past 12 Hours) Vital Signs Temp Pulse Resp BP Pulse Ox O2 Del Method O2 Flow Rate 08/05/24 07:19 36.6 C 80 16 97/61 L 93 Room Air 08/05/24 05:55 91 Room Air 08/05/24 04:21 36.4 C L 78 16 104/65 92 Nasal Cannula 2 08/05/24 00:15 36.5 C 81 18 107/69 95 Nasal Cannula 2 08/04/24 22:42 36.4 C L 85 18 98/63 L 92 Nasal Cannula 2 08/04/24 21:47 36.3 C L 73 18 104/66 93 Nasal Cannula 2 08/04/24 20:47 36.6 C 65 18 97/61 L 95 Nasal Cannula 2 PG Care Time/CCT Total # of Minutes Spent Total Time Spent with Patient: Total time spent is greater than 50% in coordination of care (as documented) at patient's floor/unit and/or counseling patient: Coding
[2024-08-05 08:35] LABS: BUN Creatinine Ratio 20.5 (10-20); Calcium 9.1 mg/dl (8.6-10.3); Potassium 4.2 mmol/L (3.5-5.1)
[2024-08-05] MEDS ORDERED: MULTIVITAMIN TAB PO SCH (09:00)
[2024-08-05] MEDS: dexAMETHasone 10 MG in SYRINGE 0 ML IV SCH (12:06)
[2024-08-05] MEDS ORDERED: CeleBREX 200 MG CAP PO SCH (21:00)
--- NOTE | 2024-08-10 17:12 | Discharge Summary ---
Date of Service August 10, 2024 Admission HPI Per Admitting Provider 64-year-old female with right shoulder pain now diagnosed with osteolysis and aseptic glenoid loosening of a right anatomic shoulder replacement. Index procedure 02/14/2009 for advanced glenohumeral osteoarthritis with posterior subluxation with chondrolysis status post prior arthroscopic stabilization procedure. Patient also had a biceps tenodesis. Patient denies headaches, sweats, fevers, chills, double vision, blurred vision, cough, sore throat, dysphagia, chest pain, sob, wheezing, n/v/d/c, numbness, tingling, fatigue, urinary symptoms, mood disorders. ROS positive for anxiety depression, asthma, sleep apnea, shortness of breath walking up a hill or running short distance or climbing some stairs sometimes, hypothyroidism Shelly's osteoarthritis of the spine obesity takes diet medication. Principal Diagnosis Right shoulder osteoarthritis Discharge Exam Constitutional WD/WN, vitals as above no acute distress Musculoskeletal Shoulder: + surgical incision (Right shoulder dressing C/D/I); no skin erythema and no ecchymosis Skin no rashes, warm and dry Trauma: no evidence of skin trauma Neurologic normal touch/pain/proprioception Psychiatric A+Ox3, euthymic affect Speech: normal rate/rhythm/volume of speech Discharge Data Allergies Allergy/AdvReac Type Severity Reaction Status Date / Time ciprofloxacin [From Cipro] Allergy Severe Confusion Verified 08/04/24 11:42 succinylcholine Allergy Severe Verified 08/04/24 11:42 NSAIDS (Non-Steroidal AdvReac Mild Nausea Verified 08/04/24 11:42 Anti-Inflamma sumatriptan AdvReac Mild "TRIPTANS" Verified 08/04/24 11:42 CAUSE ELEVATED BP AND HEART RATE Consultations 08/02/24 12:02 Consult Hospitalist Routine Procedures Performed Operation Date: 08/04/24 13:10 Actual Procedures p Right Revision of Total Shoulder Arthroplasty with Reverse Total Shoulder Arthroplasty with Bone Grafting(Right) - Ermias Sanchez MD Ordered Studies 08/04/24 05:00 US - OR guided needle placemen Routine Hospital Course (1) Loosening of shoulder joint prosthesis: Right shoulder osteolysis with loosening of glenoid component with bone loss and osteolysis proximal humerus without loosening of stem. Postop day 1 revision of anatomic total shoulder placement to a reverse shoulder replacement with calcium phosphate/sulfate bone filler placed to defects glenoid prior to implantation glenoid component. I am not going to start any formal physical therapy to allow some healing but patient can do home exercises with hand wrist elbow range of motion shoulder shrugs and scapular retraction type exercises and can pendulum arm for bathing and dressing. Drainage is minimal so drain can be discontinued prior to discharge. Patient has to follow-up in 2 weeks for staple removal. Patient has Silverlon dressing and will give typical instructions for postop management. Total Time Total Time Spent Total Time Spent (In Minutes): 20 Discharge Plan Discharge Items Patient Disposition: Home - Self-Care Reason For Visit: Right Shoulder Loosening Total Shoulder Arthroplas Discharge Diagnosis: Right shoulder loosening total shoulder arthroplasty Activity: Per Instructions section Non-emergency contact: Surgeon Call non-emergency contact if: your pain is not controlled, your pain is worsening and your temperature is above 101 Follow-up/Referrals: Ron Wilson M.D. [Primary Care Provider] - Diet: Regular Addtl Attending Provider Instructions: ACTIVITY RECOMMENDATIONS: SELF CARE INSTRUCTIONS AFTER TOTAL SHOULDER ARTHROPLASTY REVERSE A. You may do daily exercises as taught in physical therapy while in hospital. No lifting with the operative arm. B. You are to wear your sling/immobilizer at all times EXCEPT when performing your daily exercises and for hygiene purposes. C. You may perform dry, daily dressing changes. Please keep your incision covered. You may shower 48 hours after surgery. Do not apply soap or any ointment/lotions directly over incision. Do not soak incision in bath tub/swimming pool. D. You may use ice as needed to operative shoulder. E. You may resume previous diet. F. Silverlon: You have a Silverlon dressing on the surgical incision. It will remain in place for 7 days from the day of your surgery. After 7 days, you may remove the dressing, just as you would remove a bandaid. You may shower with the Silverlon dressing in place. However, if you notice any water within the dressing, the dressing should be removed. You may cover the incision with a dry dressing once the silverlon is removed if there is any drainage. SPECIAL CARE INSTRUCTIONS: VERY IMPORTANT TO READ AND REVIEW A. There are a few signs you need to watch for after you are home. Call [facility] at [phone] if you experience any of the followin. Increased severe shoulder pain. Some pain is expected especially when you exercise. 2. Increased swelling in you shoulder or arm; pain or swelling in either upper extremity. 3. Any fluid drainage from the incision. 4. Shortness of breath or chest pain. B. Please call [facility] at [phone] if you have any questions or concerns about your operation or recovery. C. Call your physician if: 1. Temperature is greater than 101 degrees (F). 2. Pain is not relieved by prescribed pain medications. 3. Increase drainage or redness from incision. 4. Unanswered questions or concerns. FOLLOW UP VISIT: Please call [facility] at [phone] to schedule a follow up appointment with Dr. Sanchez or his PA in 12-14 days from your surgery date. Pending Studies at Discharge: No Stand-Alone Forms: [employer], Smoking Cessation Medications and DC Order Prescriptions: New acetaminophen [Tylenol Extra Strength] 500 mg Tablet 1,000 mg PO Q8 Qty: 90 0RF aspirin [Ecotrin] 325 mg Tablet,Delayed Release (Dr/Ec) 325 mg PO DAILY Qty: 30 0RF celecoxib [Celebrex] 200 mg Capsule 200 mg PO BID Qty: 60 0RF oxycodone 5 mg Tablet 5 mg PO Q4H PRN (Reason: pain) Qty: 20 0RF Continued atenolol 25 mg Tablet 25 mg PO QAM phentermine 37.5 mg Tablet 37.5 mg PO QAM Rx Instructions: must administer 30 minutes before or 1-2 hours after breakfast amlodipine 10 mg Tablet 10 mg PO HS levothyroxine 50 mcg Tablet 50 mcg PO QAM montelukast 10 mg Tablet 10 mg PO HS hydrochlorothiazide 25 mg Tablet 25 mg PO QAM albuterol sulfate 90 mcg/actuation Hfa Aerosol Inhaler 2 puff INHALATION Q6H PRN (Reason: prn) bupropion HCl 200 mg Tablet Sustained-Release 12 Hr 200 mg PO BID escitalopram oxalate 10 mg Tablet 20 mg PO QAM Patient Comments: weaning off of medication rosuvastatin 5 mg Tablet 5 mg PO HS pregabalin 50 mg Capsule 100 mg PO TID budesonide-formoterol [Symbicort] 160-4.5 mcg/actuation Hfa Aerosol Inhaler 2 puff INHALATION Q12H vit C-vit [id number] Capsule 1 cap PO QAM biotin 10,000 mcg Capsule 10,000 mcg PO QPM magnesium 250 mg Tablet 250 mg PO QAM vitamin B complex Capsule 1 cap PO QAM Discontinued ibuprofen 800 mg Tablet 800 mg PO BID PRN (Reason: Pain) Discharge Orders: Discharge Order (Routine); Ordered 08/05/24 Ordered By: Ermias Sanchez Admission Data Admit Date/Time: 08/04/24 18:31 Attending Provider: Ermias Sanchez Admit Provider: Ermias Sanchez Primary Care Provider: Ron Wilson Other Interventions: Discharge Summary Assessment (RN) Last Done: 08/05/24 09:54
== END 2024-08-05 12:08 | disposition home or self-care (01) ==
LOC: 3W 10:37 → ASU 10:37
DX: Z99.89 Dependence on other enabling machines and devices; F41.9 Anxiety disorder, unspecified; E03.9 Hypothyroidism, unspecified; Y83.8 Other surgical procedures as the cause of abnormal reaction of the patient, or of later complication, without mention of misadventure at the time of the procedure; F32.A Depression, unspecified; M65.911 Unspecified synovitis and tenosynovitis, right shoulder; Z79.890 Hormone replacement therapy; J45.909 Unspecified asthma, uncomplicated; Z88.1 Allergy status to other antibiotic agents; Z79.899 Other long term (current) drug therapy; Z88.6 Allergy status to analgesic agent; Z88.8 Allergy status to other drugs, medicaments and biological substances; G47.33 Obstructive sleep apnea (adult) (pediatric); I10 Essential (primary) hypertension; T84.038A Mechanical loosening of other internal prosthetic joint, initial encounter